=== PATIENT | female | born 1995 | race Caucasian/White ===

== ENCOUNTER 2018-06-22 09:08 | Outpatient (CLI) | payer BC ==
[2018-06-22 09:28] VITALS: BP 126/93
== END 2018-06-22 12:28 | disposition home or self-care (01) ==
LOC: LDRP-OP 09:08 → 2WEST 09:09 → LDRP-OP 13:04
PROC: [UNRECOGNIZED PROCEDURE] (principal; 2018-06-22)
DX: O32.1XX0 Maternal care for breech presentation, not applicable or unspecified (principal); Z3A.37 37 weeks gestation of pregnancy; O99.343 Other mental disorders complicating pregnancy, third trimester; F41.9 Anxiety disorder, unspecified; O40.3XX0 Polyhydramnios, third trimester, not applicable or unspecified; Z53.29 Procedure and treatment not carried out because of patient's decision for other reasons
CPT/HCPCS: 59025; G0378

== ENCOUNTER 2018-06-26 13:40 | Outpatient (CLI) | payer BC ==
[2018-06-26 14:06] VITALS: BP 133/75
[2018-06-26 14:36] VITALS: BP 142/65
== END 2018-06-26 15:25 | disposition home or self-care (01) ==
LOC: LDRP-OP 13:40 → 2WEST 13:41 → LDRP-OP 08-08 12:42
DX: O26.893 Other specified pregnancy related conditions, third trimester (principal); Z3A.38 38 weeks gestation of pregnancy
CPT/HCPCS: 59025; G0378